=== PATIENT | male | born 1950 | race Caucasian/White ===

== ENCOUNTER 2019-02-19 16:20 | Emergency (ER) | payer MEDICARE ==
[~2019-02-19] VITALS: Ht 195.6 cm; Wt 102.0 kg
[2019-02-19 17:12] LABS: BASOPHILS % (AUTO) 0.4 % (0-1); EOSINOPHILS # (AUTO) 0.2 X10'3 (0-0.9); EOSINOPHILS % (AUTO) 2.6 % (0-6); HEMATOCRIT 38.4 % (42.0-52.0); LYMPHOCYTES # (AUTO) 1.6 X10'3 (1.1-4.8); LYMPHOCYTES % (AUTO) 17.1 % (21-51); MEAN CORPUSCULAR HEMOGLOBIN 29.7 PG (27.0-31.0); MEAN CORPUSCULAR HGB CONC 33.8 g/dL (33.0-36.5); MEAN CORPUSCULAR VOLUME 88.1 FL (78-98); MEAN PLATELET VOLUME 7.6 FL (7.4-10.4); MONOCYTES % (AUTO) 10.6 % (2-12); NEUTROPHILS # (AUTO) 6.4 X10'3 (1.8-7.7); NEUTROPHILS % (AUTO) 69.3 % (42-75); PLATELET COUNT 219 X10'3 (140-440); RED BLOOD COUNT 4.36 X10'6 (4.70-6.10); WHITE BLOOD COUNT 9.3 X10'3 (4.5-11.0)
--- NOTE | 2019-02-19 17:20 | NUR ---
PT REPORTS HE IS A HEMOPHILIAC, NO BLOOD THINNERS TO BE GIVEN
[2019-02-19 17:22] LABS: ALANINE AMINOTRANSFERASE 90 U/L (12-78); ALBUMIN 3.8 G/DL (3.4-5.0); ALKALINE PHOSPHATASE 170 IU/L (46-116); ANION GAP 9 (8-16); ASPARTATE AMINO TRANSFERASE 44 U/L (10-37); BLOOD UREA NITROGEN 30 MG/DL (7-18); BUN/CREATININE RATIO 26.3 (5.4-32.0); CALCIUM 9.2 MG/DL (8.5-10.1); CHLORIDE 97 MMOL/L (99-107); CREATININE 1.14 MG/DL (0.60-1.10); GLUCOSE 103 MG/DL (70-104); SODIUM 127 MMOL/L (135-145); TOTAL CARBON DIOXIDE 21.1 MMOL/L (24-32); TOTAL PROTEIN 7.7 G/DL (6.4-8.2); eGFR 64 ML/MIN
[2019-02-19 17:24] LABS: POTASSIUM 6.6 MMOL/L (3.5-5.1)
--- NOTE | 2019-02-19 17:25 | NUR ---
PATIENT TACHY,NO CP,DR. GALINDO AWARE.
[2019-02-19] MEDS ORDERED: insulin regular, human 10 units/0.1 ml syringe IV ONE (18:25)
[2019-02-19] MEDS ORDERED: dextrose 50%-water 50ml dispensing syringe IV ONE (18:25)
[2019-02-19] MEDS ORDERED: sodium bicarbonate (8.4%) 1 mEq/ml syringe IV ONE (18:25)
[2019-02-19] MEDS ORDERED: furosemide 40mg/4ml inj IV ONE (18:25)
[2019-02-19] MEDS ORDERED: calcium chloride 100 MG/1 ML inj IV ONE (18:25)
[2019-02-19] MEDS ORDERED: calcium chloride inj. 1,000 MG in normal saline 100ml IV soln 90 ML IV ONE (18:30)
--- NOTE | 2019-02-19 19:19 | NUR ---
Per pharmacy, Calcium chloride can be run over 20-30 minutes IV
[2019-02-19 22:26] VITALS: BP 133/75
[2019-02-19] MEDS ORDERED: FURO-150 PO (22:29)
== END 2019-02-19 22:36 | disposition home or self-care (01) ==
LOC: ER 16:22
DX: E87.5 Hyperkalemia (principal); N28.9 Disorder of kidney and ureter, unspecified; I50.9 Heart failure, unspecified; Z79.899 Other long term (current) drug therapy
CPT/HCPCS: 36415; 80053; 82948; 84132; 85025; 85610; 96365; 96375; 99284; J1815; J1940